=== PATIENT | male | born 2000 | race African-American/Black ===

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

== ENCOUNTER 2022-10-21 12:15 | Emergency (ER) | payer MEDICAID ==
--- NOTE | 2022-10-21 12:23 | NUR ---
ATTEMPTED TO CALL TO TRIAGE. NO ANSWER IN LOBBY OR OUTSIDE
--- NOTE | 2022-10-21 12:32 | NUR ---
CALLED IN LOBBY, NO ANSWER
--- NOTE | 2022-10-21 12:33 | NUR ---
PATIENT LEFT WITHOUT BEING SEEN BY DR. GOINS. NO FURTHER CARE PROVIDED FOR PATIENT.
[2022-10-21] MEDS ORDERED: PROC-87 PO (15:10)
[2022-10-21] MEDS ORDERED: IBUP-2213 PO (15:10)
[2022-10-21] MEDS ORDERED: ACET-10509 PO (15:12)
== END 2022-10-21 12:33 | disposition left against medical advice (07) ==
LOC: MED 12:15
DX: R51.9 Headache, unspecified (principal); Z53.21 Procedure and treatment not carried out due to patient leaving prior to being seen by health care provider

== ENCOUNTER 2022-10-21 13:58 | Emergency (ER) | payer MEDICAID ==
[~2022-10-21] VITALS: Ht 182.9 cm; Wt 61.2 kg
[2022-10-21 14:25] VITALS: BP 134/45
[2022-10-21] MEDS ORDERED: KETOROLAC 30 MG/ML VIAL IM ONE (15:10)
[2022-10-21] MEDS ORDERED: IBUP-2213 PO (15:10)
[2022-10-21] MEDS ORDERED: PROC-87 PO (15:10)
[2022-10-21] MEDS ORDERED: PROCHLORPERAZINE 5 MG TAB PO ONE (15:10)
[2022-10-21] MEDS ORDERED: ACET-10509 PO (15:12)
--- NOTE | 2022-10-21 15:41 | NUR ---
PT DROPPED ONE COMPAZINE PO ON THE FLOOR AT THIS TIME
[2022-10-21 15:42] VITALS: BP 134/45
[2022-10-21] MEDS ORDERED: PROCHLORPERAZINE 5 MG TAB ONE (15:42)
--- NOTE | 2022-10-21 15:42 | NUR ---
Patient discharged with v/s stable. Written and verbal after care instructions given and explained. Patient verbalized understanding. Ambulatory with steady gait. All questions addressed prior to discharge. Advised to follow up with PMD. RX: IBUPROFEN, TYLENOL, COMPAZINE (SENT) WORK NOTE GIVEN
== END 2022-10-21 15:42 | disposition home or self-care (01) ==
LOC: MED 13:58
DX: R51.9 Headache, unspecified (principal); R11.2 Nausea with vomiting, unspecified; F11.13 Opioid abuse with withdrawal; Z79.899 Other long term (current) drug therapy; Z79.1 Long term (current) use of non-steroidal anti-inflammatories (NSAID)
CPT/HCPCS: 99282; Q0164; J1885

== ENCOUNTER 2023-06-14 03:15 | Emergency (ER) | payer MEDICAID ==
[~2023-06-14] VITALS: Ht 170.2 cm; Wt 63.0 kg
[~2023-06-14 03:15] MED LIST: ACET-10509 PO; IBUP-2213 PO; PROC-87 PO
[2023-06-14 03:22] VITALS: BP 116/76; PULSE 70; RESP 16; TEMP 98.1; O2SAT 99
[2023-06-14] MEDS ORDERED: DEXAMETHASONE 4 MG TAB PO ONE (03:35)
[2023-06-14] MEDS ORDERED: AMOX500C25 PO (03:38)
[2023-06-14 03:47] VITALS: BP 116/76; PULSE 70; RESP 16; TEMP 98.1; O2SAT 99
== END 2023-06-14 03:47 | disposition home or self-care (01) ==
LOC: MED 03:15
DX: J02.9 Acute pharyngitis, unspecified (principal); R05.9 Cough, unspecified; R09.81 Nasal congestion; Z79.899 Other long term (current) drug therapy
CPT/HCPCS: 99283